=== PATIENT | female | born 1995 | race Caucasian/White ===

== ENCOUNTER 2024-04-09 11:39 | Emergency (ER) | payer OTHER ==
[~2024-04-09] VITALS: Ht 165.1 cm; Wt 72.5 kg
[2024-04-09] VITALS (12 sets, daily range): BP systolic 78–145; BP diastolic 60–111
[2024-04-09] MEDS ORDERED: SODIUM CHLORIDE 0.9% 1,000 ML IV ONE (12:00)
[2024-04-09] MEDS ORDERED: KETOROLAC TROMETHAMINE 15 MG/ML SDV IV ONE (12:00)
[2024-04-09 12:32] LABS: BASO% 0.4 % (0-3); EOS% 0.5 % (0-8); HEMOGLOBIN 14.3 g/dl (12.0-16.0); IMMATURE GRANULOCYTES 0.3 % (0.0-5.0); LYMPH% 19.8 % (15-41); MEAN CELL VOLUME 82.5 fL CALC (80.0-100.0); MEAN CORPUSCULAR HGB 27.4 pG CALC (26.0-32.0); MEAN CORPUSCULAR HGB CONC 33.3 g/dL CAL (32.0-36.0); MONO% 6.4 % (2-13); NEUT# 8.05 thou/uL (2.00-7.15); NEUT% 72.6 % (42-76); RED BLOOD COUNT 5.21 mill/uL (4.20-5.60); RED CELL DISTRI WIDTH 13.6 % (11.5-15.5)
[2024-04-09 12:35] LABS: URINE BILIRUBIN - DIPSTICK Negative (NEGATIVE); URINE BLOOD DIPSTICK Negative (NEGATIVE); URINE GLUCOSE - DIPSTICK Negative (NEGATIVE); URINE KETONE Negative (NEGATIVE); URINE LEUK ESTERASE Negative (NEGATIVE); URINE NITRITE - DIPSTICK Negative (Negative); URINE PROTEIN - DIPSTICK Negative (NEG-TRACE); URINE UROBILINOGEN - DIPSTICK 0.2 E.U./dL (0.2)
[2024-04-09 12:36] LABS: URINE COLOR Yellow
[2024-04-09] MEDS ORDERED: METHOCARBAMOL 500 MG/TAB PO ONE (12:40)
[2024-04-09 12:44] LABS: ALBUMIN 4.5 g/dL (3.2-5.0); BILIRUBIN, TOTAL 0.4 mg/dL (0.02-1.3); CREATININE 0.6 mg/dL (0.5-1.0); POTASSIUM 4.1 mmol/l (3.5-5.1); TOTAL PROTEIN 7.7 g/dL (6.3-8.2)
[2024-04-09] MEDS ORDERED: METHOCARBAMOL500 MG PO (13:43)
[2024-04-09] MEDS ORDERED: IBUPAK600 MG PO (13:43)
[2024-04-09] MEDS ORDERED: MOTRIN800 MG PO (13:45)
== END 2024-04-09 14:23 | disposition home or self-care (01) ==
LOC: ED 11:39
PROVIDERS: Nurse Practitioner Family
DX: M54.50 Low back pain, unspecified (principal)